=== PATIENT | female | born 1970 | race Caucasian/White ===

== ENCOUNTER 2019-10-18 16:54 | Emergency (ER) | payer OTHER ==
[2019-10-18 18:13] VITALS: BP 154/95
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
== END 2019-10-18 18:29 | disposition home or self-care (01) ==
LOC: UCEAST 16:54
DX: T22.112A Burn of first degree of left forearm, initial encounter (principal); J45.909 Unspecified asthma, uncomplicated; I10 Essential (primary) hypertension; X10.1XXA Contact with hot food, initial encounter; Y93.01 Activity, walking, marching and hiking; Y92.9 Unspecified place or not applicable; Y99.0 Civilian activity done for income or pay
CPT/HCPCS: 99201; G0463